=== PATIENT | male | born 1960 | race Caucasian/White ===

== ENCOUNTER 2017-02-23 04:03 | Emergency (ER) | payer OTHER ==
[~2017-02-23] VITALS: Ht 180.3 cm; Wt 113.6 kg
[~2017-02-23 04:03] MED LIST: AMLO5TAB96 PO; DICY1TAB26 PO; IRBE1TAB39 PO; LEVO.075 PO
[2017-02-23] MEDS ORDERED: VALS1TAB70 PO (04:13)
[2017-02-23] MEDS ORDERED: METF500T PO (04:13)
[2017-02-23] MEDS ORDERED: ASPI81CH37 CHEW (04:13)
[2017-02-23] MEDS ORDERED: LEVO.075 PO (04:13)
[2017-02-23 04:18] VITALS: BP 176/98; PULSE 54; RESP 18; TEMP 97.6; O2SAT 96
[2017-02-23] MEDS ORDERED: HYDROmorphone HCL PF 1 MG/ML VIAL IVP ONE (04:30)
[2017-02-23] MEDS ORDERED: ONDANSETRON HCL 4 MG/2 ML VIAL IV ONE (04:30)
[2017-02-23 04:38] LABS: AUTOMATED NEUTROPHIL # 3.3 TH/MM3 (1.8-7.7); BASOPHIL # 0.1 TH/MM3 (0-0.2); EOSINOPHIL # 0.1 TH/MM3 (0-0.4); EOSINOPHIL % 1.1 % (0.0-4.0); HEMATOCRIT 46.9 % (39.0-51.0); HEMO FLAGS DIFF FINAL; LYMPH % 40.9 % (9.0-44.0); LYMPHOCYTE # 2.9 TH/MM3 (1.0-4.8); MEAN CELL VOLUME 91.7 FL (80.0-100.0); MEAN CORPUSCULAR HEMOGLOBIN 30.4 PG (27.0-34.0); MEAN CORPUSCULAR HGB CONC 33.2 % (32.0-36.0); MONO % 10.9 % (0.0-8.0); NEUT % 46.1 % (16.0-70.0); PLATELET COUNT 314 TH/MM3 (150-450); RED BLOOD COUNT 5.12 MIL/MM3 (4.50-5.90); WHITE BLOOD COUNT 7.2 TH/MM3 (4.0-11.0)
[2017-02-23 04:49] LABS: CHLORIDE 107 MEQ/L (98-107); POTASSIUM 3.9 MEQ/L (3.5-5.1); SODIUM (NA) 141 MEQ/L (136-145)
[2017-02-23 04:53] LABS: ANION GAP 7 MEQ/L (5-15); BICARBONATE 26.7 MEQ/L (21.0-32.0); BLOOD UREA NITROGEN 16 MG/DL (7-18)
[2017-02-23 04:56] LABS: GLOMERULAR FILTRATION RATE 69 ML/MIN (>89)
[2017-02-23 04:57] LABS: ALT (GPT) 64 U/L (12-78); AST (GOT) 33 U/L (15-37)
[2017-02-23 04:58] LABS: TOTAL BILIRUBIN ADULT 0.4 MG/DL (0.2-1.0)
[2017-02-23 04:59] LABS: ALKALINE PHOSPHATASE 66 U/L (45-117)
[2017-02-23 05:00] VITALS: BP 150/88; PULSE 50; RESP 16; O2SAT 95
[2017-02-23] MEDS ORDERED: SODIUM CHLORID 0.9% 500 ML INJ 500 ML IV ONE (05:15)
[2017-02-23] MEDS ORDERED: IOHEXOL 350 MG/ML 10 ML VIAL (for RAD DIAG) IV ONE (05:21)
--- NOTE | 2017-02-23 05:26 | RADRPT ---
EXAM DATE/TIME: 02/23/2017 05:09 [facility] COMPARISON: CT ABDOMEN & PELVIS W CONTRAST, September 28, 2012, 13:45. INDICATIONS : Right upper quadrant and flank pain. IV CONTRAST: 100 cc Omnipaque 350 (iohexol) IV ORAL CONTRAST: No oral contrast ingested. RADIATION DOSE: 22.38 CTDIvol (mGy) MEDICAL HISTORY : Hypertension. SURGICAL HISTORY : None. ENCOUNTER: Initial ACUITY: 1 day PAIN SCALE: 5/10 LOCATION: Right upper quadrant TECHNIQUE: Volumetric scanning of the abdomen and pelvis was performed. Using automated exposure control and ad justment of the mA and/or kV according to patient size, radiation dose was kept as low as reasonably achievable to obtain optimal diagnostic quality images. DICOM format image data is available electro nically for review and comparison. FINDINGS: No pleural or pericardial effusions are seen. There is hepatomegaly, hepatic steatosis and cholelithi asis again noted. Spleen, pancreas, adrenal glands, left kidney unremarkable. There is a small cyst r ight midpole kidney and the right lower pole exophytic cyst is decreased in size and increased in att enuation since the previous study measuring 8 x 5 mm. This likely reflects a small proteinaceous cyst . There is moderate right-sided hydronephrosis and there is a calculus within the right proximal uret er measuring 3.6 mm on axial image 52. Urinary bladder unremarkable. There is diverticulosis of the s igmoid colon and descending colon as well as the transverse colon without diverticulitis. The appendi x is normal. No adenopathy. Lung bases are clear. Osseous structures are intact. CONCLUSION: 1. Moderate right hydronephrosis secondary to a right proximal ureteral calculus. 2. Small hemorrhagic or proteinaceous cyst right lower pole kidney, decreased in size from previous s tudy. 3. Right midpole renal cyst. 4. Hepatomegaly. 5. Cholelithiasis. 6. Diverticulosis. Ned Morton MD on February 23, 2017 at 5:22 Board Certified Radiologist. This report was verified electronically.
[2017-02-23] MEDS ORDERED: KETOROLAC TROMETHAMINE 60 MG/2 ML (IM) VIAL IVP ONE (05:30)
[2017-02-23 05:40] VITALS: BP 162/86; PULSE 57; RESP 18; O2SAT 94
[2017-02-23 05:57] LABS: BLOOD, URINE LARGE (NEG); GLUCOSE,URINE NEG (NEG); KETONE, URINE NEG (NEG); NITRITE,URINE NEG (NEG)
[2017-02-23 06:12] LABS: URINE COLOR AMBER (YELLW/STRAW)
[2017-02-23 06:13] LABS: CALCIUM OXALATE CRYSTALS,URINE OCC /hpf; MUCUS URINE MOD /lpf (OCC); RBC, URINE INNUM /hpf (0-3)
[2017-02-23] MEDS ORDERED: TAMSULOSIN HCL 0.4 MG CAP PO ONE (06:15)
[2017-02-23 06:17] LABS: SQUAMOUS EPITHELIAL CELL URINE 0-5 /hpf (0-5)
[2017-02-23 06:20] LABS: BACTERIA, URINE FEW /hpf; COMMENT (UR) CULT NOT INDICATED; CULTURE IF INDICATED CULT NOT INDICATED
[2017-02-23 06:27] VITALS: BP 142/77; PULSE 62; RESP 18; O2SAT 95
--- NOTE | 2017-02-23 06:37 | PD ---
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 He denied any nausea, vomiting, chest pain, shortness of breath or diarrhea. He does not have a history of kidney stones or gallstones. PFSH Past Medical History Patient Takes Glucophage: Yes ("PREVENTATIVE FOR INSULIN RESISTANCE") Hypertension: Yes Pneumonia: Yes (CHILDHOOD) Thyroid Disease: Yes (THYROID NODULE/GOITER, HYPOTHYROIDISM) Tetanus Vaccination: < 5 Years Influenza Vaccination: Yes Past Surgical History Other Surgery: Yes (THYROIDECTOMY) Social History Alcohol Use: No Tobacco Use: No Substance Use: No Allergies-Medications (Allergen,Severity, Reaction): Coded Allergies: No Known Allergies (Unverified , 02/23/17) Reported Meds & Prescriptions Reported Meds & Active Scripts Active Ibuprofen 800 Mg Tab 800 Mg PO TID Zofran (Ondansetron HCl) 4 Mg Tab 4 Mg PO Q6HR PRN Flomax (Tamsulosin HCl) 0.4 Mg Cap 0.4 Mg PO HS Percocet (Oxycodone-Acetaminophen) 7.5-325 mg Tab 1 Tab PO Q4H PRN Reported Aspirin Low Dose (Aspirin) 81 Mg Chew 81 Mg CHEW DAILY Metformin (Metformin HCl) 500 Mg Tab 500 Mg PO BIDPC With meals Synthroid (Levothyroxine Sodium) 75 Mcg Tab 75 Mcg PO DAILY Valsartan 320 Mg Tab 320 Mg PO DAILY Review of Systems Except as stated in HPI: all other systems reviewed are Neg Physical Exam Narrative GENERAL: The patient is alert, oriented 3 in moderate to severe distress with his right abdominal pain. His vital signs show blood pressure 176/98 and pulse of 54 but are otherwise normal. SKIN: Focused skin assessment warm/dry. HEAD: Atraumatic. Normocephalic. EYES: Pupils equal and round. No scleral icterus. No injection or drainage. ENT: No nasal bleeding or discharge. Mucous membranes pink and moist. NECK: Trachea midline. No JVD. CARDIOVASCULAR: Regular rate and rhythm. No murmur appreciated. RESPIRATORY: No accessory muscle use. Clear to auscultation. Breath sounds equal bilaterally. GASTROINTESTINAL: Abdomen soft, the patient is tender in the right upper quadrant and epigastrium, nondistended. Hepatic and splenic margins not palpable. No guarding or rebound is present. MUSCULOSKELETAL: No obvious deformities. No clubbing. No cyanosis. No edema. NEUROLOGICAL: Awake and alert. No obvious cranial nerve deficits. Motor grossly within normal limits. Normal speech. PSYCHIATRIC: Appropriate mood and affect; insight and judgment normal. Data Data Last Documented VS Vital Signs Date Time Temp Pulse Resp B/P Pulse Ox O2 Delivery O2 Flow Rate FiO2 02/23/17 06:27 62 18 142/77 95 Room Air 02/23/17 04:18 97.6 Orders Electrocardiogram (02/23/17 04:08) Complete Blood Count With Diff (02/23/17 04:08) Comprehensive Metabolic Panel (02/23/17 04:08) Troponin I (02/23/17 04:08) Lipase (02/23/17 04:08) Ct Abd/Pel W Iv Contrast(Rout) (02/23/17 04:08) Hydromorphone Pf Inj (Dilaudid Pf Inj) (02/23/17 04:30) Ondansetron Inj (Zofran Inj) (02/23/17 04:30) Sodium Chlorid 0.9% 500 Ml Inj (Ns 500 M (02/23/17 05:15) Ketorolac Inj (Toradol Inj) (02/23/17 05:30) Iohexol 350 Inj (Omnipaque 350 Inj) (02/23/17 05:21) Urinalysis - C+S If Indicated (02/23/17 05:39) Tamsulosin (Flomax) (02/23/17 06:15) Labs Laboratory Tests Test 02/23/17 02/23/17 04:20 05:40 White Blood Count 7.2 TH/MM3 Red Blood Count 5.12 MIL/MM3 Hemoglobin 15.6 GM/DL Hematocrit 46.9 % Mean Corpuscular Volume 91.7 FL Mean Corpuscular Hemoglobin 30.4 PG Mean Corpuscular Hemoglobin 33.2 % Concent Red Cell Distribution Width 14.0 % Platelet Count 314 TH/MM3 Mean Platelet Volume 8.2 FL Neutrophils (%) (Auto) 46.1 % Lymphocytes (%) (Auto) 40.9 % Monocytes (%) (Auto) 10.9 % Eosinophils (%) (Auto) 1.1 % Basophils (%) (Auto) 1.0 % Neutrophils # (Auto) 3.3 TH/MM3 Lymphocytes # (Auto) 2.9 TH/MM3 Monocytes # (Auto) 0.8 TH/MM3 Eosinophils # (Auto) 0.1 TH/MM3 Basophils # (Auto) 0.1 TH/MM3 CBC Comment DIFF FINAL Differential Comment Sodium Level 141 MEQ/L Potassium Level 3.9 MEQ/L Chloride Level 107 MEQ/L Carbon Dioxide Level 26.7 MEQ/L Anion Gap 7 MEQ/L Blood Urea Nitrogen 16 MG/DL Creatinine 1.10 MG/DL Estimat Glomerular Filtration 69 ML/MIN Rate Random Glucose 107 MG/DL Calcium Level 9.2 MG/DL Total Bilirubin 0.4 MG/DL Aspartate Amino Transf 33 U/L (AST/SGOT) Alanine Aminotransferase 64 U/L (ALT/SGPT) Alkaline Phosphatase 66 U/L Troponin I LESS THAN 0.02 NG/ML Total Protein 7.6 GM/DL Albumin 3.7 GM/DL Lipase 127 U/L Urine Color JOSEPH Urine Turbidity SLIGHT Urine pH 5.0 Urine Specific [place] GREATER THAN 1.035 Urine Protein 100 mg/dL Urine Glucose (UA) NEG mg/dL Urine Ketones NEG mg/dL Urine Occult Blood LARGE Urine Nitrite NEG Urine Bilirubin NEG Urine Leukocyte Esterase NEG Urine RBC INNUM /hpf Urine Squamous Epithelial 0-5 /hpf Cells Urine Calcium Oxalate Crystals OCC /hpf Urine Amorphous Sediment FEW Urine Bacteria FEW /hpf Urine Mucus MOD /lpf Microscopic Urinalysis Comment CULT NOT INDICATED MDM Medical Decision Making Medical Screen Exam Complete: Yes Emergency Medical Condition: Yes Medical Record Reviewed: Yes Interpretation(s) The CT abdomen/pelvis with contrast shows moderate right hydronephrosis secondary to a right proximal or ureteral calculus of 3.6 mm. There is a small hemorrhagic or proteinaceous cyst right lower pole of the kidney which has decreased in size from a previous study. There is a right mid pole renal cyst. There is hepatomegaly and cholelithiasis present there is also diverticulosis. The urine showed blood and the labs are unremarkable. Differential Diagnosis Cholecystitis, cholelithiasis, right ureteral stone, urinary tract infection pyelonephritis, UTIcystitis, Narrative Course The patient has a right ureteral stone. It is now 0651 and the patient is comfortable. He will be given prescriptions for Flomax, Zofran, Motrin and Percocet 7.5. He will follow up with urologist Diagnosis Primary Impression: Right ureteral calculus Additional Impression: Cholelithiasis Additional Instructions: As you know, you are likely to pass this stone without any help. If you have problems follow up with urologist. You also have cholelithiasis. Med/Other Pt SpecificInfo: Prescription(s) given Scripts Ibuprofen 800 Mg [id number] Mg PO TID #33 TAB Ref 0 Prov:Singh Awad MD 02/23/17 Ondansetron (Zofran)4 Mg Tab4 Mg PO Q6HR PRN (NAUSEA OR VOMITING) #30 TAB Ref 0 Prov:Singh Awad MD 02/23/17 Tamsulosin (Flomax)0.4 Mg Cap0.4 Mg PO HS #30 CAP Ref 0 Prov:Singh Awad MD 02/23/17 Oxycodone-Acetaminophen (Percocet)7.5-325 mg Tab1 Tab PO Q4H PRN (PAIN) #30 TAB Ref 0 Prov:Singh Awad MD 02/23/17 Disposition: 01 DISCHARGE HOME Condition: Stable Singh Awad MD Feb 23, 2017 06:37
[2017-02-23] MEDS ORDERED: TAMS5CAP PO (06:45)
[2017-02-23] MEDS ORDERED: IBUP800T23 PO (06:45)
[2017-02-23] MEDS ORDERED: PERC7.5T13 PO (06:45)
[2017-02-23] MEDS ORDERED: ZOFR4TAB PO (06:45)
--- NOTE | 2017-02-23 08:17 | EKG ---
Date Performed: 02/23/2017 Time Performed: 04:15:40 PTAGE: 56 years EKG: SINUS BRADYCARDIA BORDERLINE LEFT AXIS DEVIATION MODERATE INTRAVENTRICULAR CONDUCTION DELAY BORDERLINE ECG NO PREVIOUS TRACING DOCTOR: Robert Drew Interpretating Date/Time 02/23/2017 08:15:35
== END 2017-02-23 07:03 | disposition home or self-care (01) ==
LOC: PHED 04:03
DX: N20.1 Calculus of ureter (principal); K80.20 Calculus of gallbladder without cholecystitis without obstruction; R94.31 Abnormal electrocardiogram [ECG] [EKG]; I10 Essential (primary) hypertension; E03.9 Hypothyroidism, unspecified
CPT/HCPCS: 74177; 80053; 81001; 83690; 84484; 85025; 93005; 96361; 96374; 96375; 99285; J1170; J1885; J2405; J7040; Q9967

== ENCOUNTER 2017-02-25 21:29 | Emergency (ER) | payer OTHER ==
[~2017-02-25] VITALS: Ht 180.3 cm; Wt 113.5 kg
[~2017-02-25 21:29] MED LIST changes: -AMLO5TAB96 PO; +ASPI81CH37 CHEW; -DICY1TAB26 PO; +IBUP800T23 PO; -IRBE1TAB39 PO; +METF500T PO; +PERC7.5T13 PO; +TAMS5CAP PO; +VALS1TAB70 PO; +ZOFR4TAB PO
[2017-02-25] MEDS ORDERED: SODIUM CHLOR 0.9% 1000 ML INJ 1,000 ML IV SCH (21:33)
[2017-02-25 21:35] VITALS: BP 179/68; PULSE 78; RESP 16; TEMP 98.7; O2SAT 99
--- NOTE | 2017-02-25 21:48 | PD ---
HPI Chief Complaint: Flank/Kidney Pain Time Seen by Provider: 21:33 Travel History International Travel<30 days: No Contact w/Intl Traveler<30days: No History of Present Illness HPI Patient is a 56-year-old male with history of hypertension who returns to emergency room with complaints of right-sided flank pain. Patient was seen in emergency room on February 23, 2017 which showed moderate right-sided hydronephrosis secondary to right proximal ureteral calculus which measures 3.6 mm in size. Patient reports that pain has improved since he was last seen, he has intermittent right sided flank pain. Reports concern as he has been having decreased urine output with increased swelling to his right ankle. GFR on was 69. Patient denies any fever/chills. No other c/o. PFSH Past Medical History Hypertension: Yes Pneumonia: Yes (CHILDHOOD) Thyroid Disease: Yes (THYROID NODULE/GOITER, HYPOTHYROIDISM) Past Surgical History Other Surgery: Yes (THYROIDECTOMY) Social History Alcohol Use: No Tobacco Use: No Substance Use: No Allergies-Medications (Allergen,Severity, Reaction): Coded Allergies: No Known Allergies (Unverified , 02/23/17) Reported Meds & Prescriptions Reported Meds & Active Scripts Active Ibuprofen 800 Mg Tab 800 Mg PO TID Zofran (Ondansetron HCl) 4 Mg Tab 4 Mg PO Q6HR PRN Flomax (Tamsulosin HCl) 0.4 Mg Cap 0.4 Mg PO HS Percocet (Oxycodone-Acetaminophen) 7.5-325 mg Tab 1 Tab PO Q4H PRN Reported Aspirin Low Dose (Aspirin) 81 Mg Chew 81 Mg CHEW DAILY Metformin (Metformin HCl) 500 Mg Tab 500 Mg PO BIDPC With meals Synthroid (Levothyroxine Sodium) 75 Mcg Tab 75 Mcg PO DAILY Valsartan 320 Mg Tab 320 Mg PO DAILY Review of Systems General / Constitutional: No: Fever Eyes: No: Visual changes HENT: No: Headaches Cardiovascular: No: Chest Pain or Discomfort Respiratory: No: Shortness of Breath Gastrointestinal: No: Abdominal Pain Genitourinary: Positive: Decreased Urinary Output, Flank Pain, No: Dysuria Musculoskeletal: No: Pain Skin: No Rash Neurologic: No: Weakness Psychiatric: No: Depression Endocrine: No: Polydipsia Hematologic/Lymphatic: No: Easy Bruising Physical Exam Narrative GENERAL: NAD, Nontoxic SKIN: Focused skin assessment warm/dry. CARDIOVASCULAR: Regular rate and rhythm. No murmur appreciated. RESPIRATORY: No accessory muscle use. Clear to auscultation. Breath sounds equal bilaterally. GASTROINTESTINAL: Abdomen soft, non-tender, nondistended. Hepatic and splenic margins not palpable. MUSCULOSKELETAL: No obvious deformities. No clubbing. No cyanosis. No edema. Patient with right sided flank pain NEUROLOGICAL: Awake and alert. Motor grossly within normal limits. Normal speech. PSYCHIATRIC: Appropriate mood and affect; insight and judgment normal. Data Data Last Documented VS Vital Signs Date Time Temp Pulse Resp B/P Pulse Ox O2 Delivery O2 Flow Rate FiO2 02/25/17 21:35 98.7 78 16 179/68 99 Orders Basic Metabolic Panel (Bmp) (02/25/17 21:33) Complete Blood Count With Diff (02/25/17 21:33) Urinalysis - C+S If Indicated (02/25/17 21:33) Iv Access Insert/Monitor (02/25/17 21:33) Sodium Chlor 0.9% 1000 Ml Inj (Ns 1000 M (02/25/17 21:33) Us Kidney/Renal/Bladder (02/25/17 ) Ketorolac Inj (Toradol Inj) (02/25/17 23:30) Labs Laboratory Tests Test 02/25/17 02/25/17 21:45 22:50 White Blood Count 6.9 TH/MM3 Red Blood Count 4.63 MIL/MM3 Hemoglobin 14.2 GM/DL Hematocrit 42.1 % Mean Corpuscular Volume 90.9 FL Mean Corpuscular Hemoglobin 30.6 PG Mean Corpuscular Hemoglobin 33.6 % Concent Red Cell Distribution Width 13.3 % Platelet Count 272 TH/MM3 Mean Platelet Volume 8.0 FL Neutrophils (%) (Auto) 56.0 % Lymphocytes (%) (Auto) 35.3 % Monocytes (%) (Auto) 4.7 % Eosinophils (%) (Auto) 3.1 % Basophils (%) (Auto) 0.9 % Neutrophils # (Auto) 3.9 TH/MM3 Lymphocytes # (Auto) 2.4 TH/MM3 Monocytes # (Auto) 0.3 TH/MM3 Eosinophils # (Auto) 0.2 TH/MM3 Basophils # (Auto) 0.1 TH/MM3 CBC Comment DIFF FINAL Differential Comment Sodium Level 139 MEQ/L Potassium Level 3.6 MEQ/L Chloride Level 105 MEQ/L Carbon Dioxide Level 27.0 MEQ/L Anion Gap 7 MEQ/L Blood Urea Nitrogen 9 MG/DL Creatinine 0.99 MG/DL Estimat Glomerular Filtration 78 ML/MIN Rate Random Glucose 151 MG/DL Calcium Level 8.4 MG/DL Urine Color YELLOW Urine Turbidity CLEAR Urine pH 5.5 Urine Specific [place] 1.010 Urine Protein NEG mg/dL Urine Glucose (UA) NEG mg/dL Urine Ketones NEG mg/dL Urine Occult Blood SMALL Urine Nitrite NEG Urine Bilirubin NEG Urine Leukocyte Esterase NEG Urine RBC 3-5 /hpf Urine WBC 0-2 /hpf Urine Squamous Epithelial 0-5 /hpf Cells Urine Bacteria NONE /hpf Microscopic Urinalysis Comment CULT NOT INDICATED MDM Medical Decision Making Medical Screen Exam Complete: Yes Emergency Medical Condition: Yes Interpretation(s) Vital Signs Date Time Temp Pulse Resp B/P Pulse Ox O2 Delivery O2 Flow Rate FiO2 02/25/17 21:35 98.7 78 16 179/68 99 CBC & BMP Diagram 02/25/17 21:45 Differential Diagnosis Differential includes hydronephrosis, UTI, right ureteral calculus, renal insufficiency Narrative Course Patient is a 56-year-old male who returns to emergency room with complaints of right sided flank pain with decreased urine output. Renal US ordered to evaluate for hydronephrosis Labs ordered to evaluate for renal function Vital Signs Date Time Temp Pulse Resp B/P Pulse Ox O2 Delivery O2 Flow Rate FiO2 02/25/17 21:35 98.7 78 16 179/68 99 Laboratory Tests Test 02/25/17 21:45 White Blood Count 6.9 TH/MM3 (4.0-11.0) Red Blood Count 4.63 MIL/MM3 (4.50-5.90) Hemoglobin 14.2 GM/DL (13.0-17.0) Hematocrit 42.1 % (39.0-51.0) Mean Corpuscular Volume 90.9 FL (80.0-100.0) Mean Corpuscular Hemoglobin 30.6 PG (27.0-34.0) Mean Corpuscular Hemoglobin 33.6 % Concent (32.0-36.0) Red Cell Distribution Width 13.3 % (11.6-17.2) Platelet Count 272 TH/MM3 (150-450) Mean Platelet Volume 8.0 FL (7.0-11.0) Neutrophils (%) (Auto) 56.0 % (16.0-70.0) Lymphocytes (%) (Auto) 35.3 % (9.0-44.0) Monocytes (%) (Auto) 4.7 % (0.0-8.0) Eosinophils (%) (Auto) 3.1 % (0.0-4.0) Basophils (%) (Auto) 0.9 % (0.0-2.0) Neutrophils # (Auto) 3.9 TH/MM3 (1.8-7.7) Lymphocytes # (Auto) 2.4 TH/MM3 (1.0-4.8) Monocytes # (Auto) 0.3 TH/MM3 (0-0.9) Eosinophils # (Auto) 0.2 TH/MM3 (0-0.4) Basophils # (Auto) 0.1 TH/MM3 (0-0.2) CBC Comment DIFF FINAL Differential Comment Sodium Level 139 MEQ/L (136-145) Potassium Level 3.6 MEQ/L (3.5-5.1) Chloride Level 105 MEQ/L (98-107) Carbon Dioxide Level 27.0 MEQ/L (21.0-32.0) Anion Gap 7 MEQ/L (5-15) Blood Urea Nitrogen 9 MG/DL (7-18) Creatinine 0.99 MG/DL (0.60-1.30) Estimat Glomerular Filtration 78 ML/MIN (>89) Rate Random Glucose 151 MG/DL (74-106) Calcium Level 8.4 MG/DL (8.5-10.1) GFR improved: 78 Last Impressions Renal Ultrasound 02/25/17 0000 Signed Impressions: Service Date/Time: Saturday, February 25, 2017 22:21 - CONCLUSION: 1. Mild prominence of the right renal pelvis. 2. Simple cyst right kidney measures 1.9 cm. Shashank Edouard MD All labs and studies reviewed, patient will follow up with pcp and will return to ER as needed Return to ER as needed or if symptoms return Diagnosis Primary Impression: Right ureteral calculus Additional Impression: Hematuria Patient Instructions: General Instructions Additional Instructions: Return to ER as needed Please drink plenty of fluids Please follow up with your primary care doctor as well as your urologist Disposition: 01 DISCHARGE HOME Condition: Stable Frieda Ha DO Feb 25, 2017 21:48
[2017-02-25 21:57] LABS: AUTOMATED NEUTROPHIL # 3.9 TH/MM3 (1.8-7.7); BASOPHIL # 0.1 TH/MM3 (0-0.2); BASOPHIL % 0.9 % (0.0-2.0); EOSINOPHIL # 0.2 TH/MM3 (0-0.4); EOSINOPHIL % 3.1 % (0.0-4.0); HEMATOCRIT 42.1 % (39.0-51.0); HEMO FLAGS DIFF FINAL; LYMPH % 35.3 % (9.0-44.0); LYMPHOCYTE # 2.4 TH/MM3 (1.0-4.8); MEAN CELL VOLUME 90.9 FL (80.0-100.0); MEAN CORPUSCULAR HEMOGLOBIN 30.6 PG (27.0-34.0); MEAN CORPUSCULAR HGB CONC 33.6 % (32.0-36.0); MONO % 4.7 % (0.0-8.0); PLATELET COUNT 272 TH/MM3 (150-450); RED BLOOD COUNT 4.63 MIL/MM3 (4.50-5.90); RED CELL DISTRIBUTION WIDTH 13.3 % (11.6-17.2); WHITE BLOOD COUNT 6.9 TH/MM3 (4.0-11.0)
[2017-02-25 22:05] LABS: POTASSIUM 3.6 MEQ/L (3.5-5.1)
[2017-02-25 22:53] LABS: BLOOD, URINE SMALL (NEG); GLUCOSE,URINE NEG (NEG); KETONE, URINE NEG (NEG); NITRITE,URINE NEG (NEG); PH, URINE 5.5 (5.0-8.5)
[2017-02-25 23:07] LABS: URINE COLOR YELLOW (YELLW/STRAW); WBC, URINE 0-2 /hpf (0-5)
[2017-02-25 23:08] LABS: COMMENT (UR) CULT NOT INDICATED; CULTURE IF INDICATED CULT NOT INDICATED; SQUAMOUS EPITHELIAL CELL URINE 0-5 /hpf (0-5)
--- NOTE | 2017-02-25 23:15 | RADRPT ---
EXAM DATE/TIME: 02/25/2017 22:21 [facility] COMPARISON: No previous studies available for comparison. INDICATIONS : Right flank pain. MEDICAL HISTORY : Hypothyroidism. Hypertension. Renal calculi. Pneumonia. SURGICAL HISTORY : Thyroidectomy. ENCOUNTER: Initial ACUITY: 3 days PAIN SCORE: 3/10 LOCATION: Bilateral flank MEASUREMENTS: RIGHT KIDNEY: 13.2 x 6.5 x 6.7 cm LEFT KIDNEY: 12.1 x 5.3 x 6.5 cm FINDINGS: RIGHT KIDNEY: Renal cortex is normal in thickness and echotexture. No stone or mass. Mild prominence of the renal pelvis. Small simple cyst measures 19 x 17 x 16 mm.. LEFT KIDNEY: Renal cortex is normal in thickness and echotexture. No hydronephrosis, stone, or mass. BLADDER: Within normal limits given the degree of distension. CONCLUSION: 1. Mild prominence of the right renal pelvis. 2. Simple cyst right kidney measures 1.9 cm. Shashank Edouard MD on February 25, 2017 at 23:10 Board Certified Radiologist. This report was verified electronically.
[2017-02-25] MEDS ORDERED: KETOROLAC TROMETHAMINE 30 MG/ML (IVP) VIAL IV PUSH ONE (23:30)
[2017-02-25 23:54] VITALS: BP 168/84; PULSE 77; RESP 16; O2SAT 99
== END 2017-02-26 00:06 | disposition home or self-care (01) ==
LOC: PHED 21:29
DX: N20.1 Calculus of ureter (principal); N28.1 Cyst of kidney, acquired; E03.9 Hypothyroidism, unspecified; I10 Essential (primary) hypertension
CPT/HCPCS: 76775; 80048; 81001; 85025; 96361; 96374; 99285; J1885; J7030

== ENCOUNTER 2017-04-27 19:09 | Emergency (ER) | payer OTHER ==
[~2017-04-27] VITALS: Ht 182.9 cm; Wt 116.3 kg
[2017-04-27 19:11] VITALS: BP 175/88; PULSE 82; RESP 18; TEMP 98.1; O2SAT 96
[2017-04-27] MEDS ORDERED: KETOROLAC TROMETHAMINE 30 MG/ML (IVP) VIAL IV PUSH ONE (19:45)
[2017-04-27] MEDS ORDERED: ONDANSETRON HCL 4 MG/2 ML VIAL IV PUSH ONE (19:45)
--- NOTE | 2017-04-27 20:13 | PD ---
HPI Chief Complaint: Flank/Kidney Pain Time Seen by Provider: 19:24 Travel History International Travel<30 days: No Contact w/Intl Traveler<30days: No Traveled to known affect area: No History of Present Illness HPI So 56-year-old man presents emergency department complaining of right flank pain and back pain started today. Pain is mostly in the right inguinal area now. Feels similar to previous kidney stone. One kidney stone the past several months ago. He took Motrin 800 mg as well as some Zofran and Flomax which has helped some with the pain. He also notices blood in his urine. No nausea or vomiting. No fevers or chills. He otherwise had been feeling generally well and healthy before the onset of the symptoms. History Past Medical History Narrative Medical Hypertension Hypothyroidism Social History Alcohol Use: No Tobacco Use: No Allergies-Medications (Allergen,Severity, Reaction): Coded Allergies: No Known Allergies (Unverified , 04/27/17) Reported Meds & Prescriptions Reported Meds & Active Scripts Active Ibuprofen 800 Mg Tab 800 Mg PO TID Zofran (Ondansetron HCl) 4 Mg Tab 4 Mg PO Q6HR PRN Flomax (Tamsulosin HCl) 0.4 Mg Cap 0.4 Mg PO HS Percocet (Oxycodone-Acetaminophen) 7.5-325 mg Tab 1 Tab PO Q4H PRN Reported Aspirin Low Dose (Aspirin) 81 Mg Chew 81 Mg CHEW DAILY Metformin (Metformin HCl) 500 Mg Tab 500 Mg PO BIDPC With meals Synthroid (Levothyroxine Sodium) 75 Mcg Tab 75 Mcg PO DAILY Valsartan 320 Mg Tab 320 Mg PO DAILY Review of Systems Except as stated in HPI: all other systems reviewed are Neg Physical Exam Narrative GENERAL: Well-appearing 56-year-old man, no acute distress. SKIN: Focused skin assessment warm/dry. NECK: Trachea midline. No JVD. CARDIOVASCULAR: Warm and well perfused. RESPIRATORY: Normal rate and effort. GASTROINTESTINAL: Abdomen is obese, soft, mild right sided tenderness to palpation. No rebound or guarding. No CVA tenderness. MUSCULOSKELETAL: No obvious deformities. No edema. NEUROLOGICAL: Awake and alert. No obvious cranial nerve deficits. Motor grossly within normal limits. Normal speech. PSYCHIATRIC: Appropriate mood and affect; insight and judgment normal. Data Data Last Documented VS Vital Signs Date Time Temp Pulse Resp B/P (MAP) Pulse Ox O2 Delivery O2 Flow Rate FiO2 04/27/17 19:11 98.1 82 18 175/88 (117) 96 Orders Orders Complete Blood Count With Diff (04/27/17 19:44) Basic Metabolic Panel (Bmp) (04/27/17 19:44) Iv Access Insert/Monitor (04/27/17 19:44) Urinalysis - C+S If Indicated (04/27/17 19:44) Ketorolac Inj (Toradol Inj) (04/27/17 19:45) Ondansetron Inj (Zofran Inj) (04/27/17 19:45) Labs Laboratory Tests Test 04/27/17 20:00 White Blood Count 8.6 TH/MM3 Red Blood Count 4.88 MIL/MM3 Hemoglobin 14.8 GM/DL Hematocrit 43.4 % Mean Corpuscular Volume 88.9 FL Mean Corpuscular Hemoglobin 30.4 PG Mean Corpuscular Hemoglobin Concent 34.2 % Red Cell Distribution Width 13.1 % Platelet Count 305 TH/MM3 Mean Platelet Volume 7.8 FL Neutrophils (%) (Auto) 66.2 % Lymphocytes (%) (Auto) 26.0 % Monocytes (%) (Auto) 6.9 % Eosinophils (%) (Auto) 0.3 % Basophils (%) (Auto) 0.6 % Neutrophils # (Auto) 5.7 TH/MM3 Lymphocytes # (Auto) 2.2 TH/MM3 Monocytes # (Auto) 0.6 TH/MM3 Eosinophils # (Auto) 0.0 TH/MM3 Basophils # (Auto) 0.1 TH/MM3 CBC Comment DIFF FINAL Differential Comment Urine Color BROWN Urine Turbidity CLOUDY Urine pH 5.0 Urine Specific [place] 1.030 Urine Protein 300 OR GREATER mg/dL Urine Glucose (UA) NEG mg/dL Urine Ketones TRACE mg/dL Urine Occult Blood LARGE Urine Nitrite POS Urine Bilirubin NEG Urine Leukocyte Esterase NEG Urine RBC 100-200 /hpf Urine WBC 3-5 /hpf Urine Squamous Epithelial Cells 0-5 /hpf Urine Amorphous Sediment LARGE Microscopic Urinalysis Comment CULT NOT INDICATED Blood Urea Nitrogen 20 MG/DL Creatinine 1.00 MG/DL Random Glucose 106 MG/DL Calcium Level 9.1 MG/DL Sodium Level 137 MEQ/L Potassium Level 4.2 MEQ/L Chloride Level 103 MEQ/L Carbon Dioxide Level 24.9 MEQ/L Anion Gap 9 MEQ/L Estimat Glomerular Filtration Rate 77 ML/MIN [facility] Medical Decision Making Medical Screen Exam Complete: Yes Emergency Medical Condition: Yes Differential Diagnosis Renal lithiasis, renal colic, renal mass, other Narrative Course 56-year-old man, history of fairly recent renal lithiasis, here for symptoms suggestive renal lithiasis with hematuria and flank pain. Looks well. Comfortable now. Minimal pain now. Recommend UA and labs. Recommend avoid CT at this time. Diagnosis Primary Impression: Right ureteral calculus Patient Instructions: General Instructions Additional Instructions: Take Motrin as needed for pain. Use Zofran or Percocet as previously prescribed as needed for vomiting or pain respectively. Return to the emergency department for any worsening abdominal pain, fevers, or any other new or worsening symptoms. Disposition: 01 DISCHARGE HOME Condition: Stable Nirmal Llamas MD Apr 27, 2017 20:13
[2017-04-27 20:14] LABS: AUTOMATED NEUTROPHIL # 5.7 TH/MM3 (1.8-7.7); BASOPHIL # 0.1 TH/MM3 (0-0.2); BASOPHIL % 0.6 % (0.0-2.0); EOSINOPHIL % 0.3 % (0.0-4.0); HEMATOCRIT 43.4 % (39.0-51.0); HEMO FLAGS DIFF FINAL; LYMPHOCYTE # 2.2 TH/MM3 (1.0-4.8); MEAN CELL VOLUME 88.9 FL (80.0-100.0); MEAN CORPUSCULAR HEMOGLOBIN 30.4 PG (27.0-34.0); MEAN CORPUSCULAR HGB CONC 34.2 % (32.0-36.0); MONO % 6.9 % (0.0-8.0); NEUT % 66.2 % (16.0-70.0); PLATELET COUNT 305 TH/MM3 (150-450); RED BLOOD COUNT 4.88 MIL/MM3 (4.50-5.90); RED CELL DISTRIBUTION WIDTH 13.1 % (11.6-17.2); WHITE BLOOD COUNT 8.6 TH/MM3 (4.0-11.0)
[2017-04-27 20:15] LABS: BLOOD, URINE LARGE (NEG); GLUCOSE,URINE NEG (NEG); KETONE, URINE TRACE mg/dL (NEG); NITRITE,URINE POS (NEG)
[2017-04-27 20:21] LABS: URINE COLOR BROWN (YELLW/STRAW)
[2017-04-27 20:23] LABS: SQUAMOUS EPITHELIAL CELL URINE 0-5 /hpf (0-5)
[2017-04-27 20:25] LABS: COMMENT (UR) CULT NOT INDICATED; CULTURE IF INDICATED CULT NOT INDICATED; POTASSIUM 4.2 MEQ/L (3.5-5.1); RBC, URINE 100-200 /hpf (0-3)
[2017-04-27 20:28] LABS: BICARBONATE 24.9 MEQ/L (21.0-32.0)
[2017-04-27 21:09] VITALS: BP 131/77; PULSE 69; RESP 16; O2SAT 97
== END 2017-04-27 21:28 | disposition home or self-care (01) ==
LOC: PHED 19:09
DX: N20.1 Calculus of ureter (principal); I10 Essential (primary) hypertension; E03.9 Hypothyroidism, unspecified
CPT/HCPCS: 80048; 81001; 85025; 99283

== ENCOUNTER 2017-06-19 14:56 | Emergency (ER) | payer OTHER ==
[~2017-06-19] VITALS: Ht 182.9 cm; Wt 114.0 kg
[~2017-06-19 14:56] MED LIST changes: -ASPI81CH37 CHEW; +ASPI81CH6 CHEW; +IBUP1TAB7 PO; -IBUP800T23 PO
[2017-06-19 15:00] VITALS: BP 142/73; PULSE 60; RESP 20; TEMP 97.4; O2SAT 96
[2017-06-19] MEDS ORDERED: SODIUM CHLOR 0.9% 1000 ML INJ 1,000 ML IV SCH (15:04)
--- NOTE | 2017-06-19 15:11 | PD ---
HPI Chief Complaint: GI Complaint Time Seen by Provider: 15:04 Travel History International Travel<30 days: No Contact w/Intl Traveler<30days: No Traveled to known affect area: No History of Present Illness HPI The patient is a 57-year-old male who presents to the emergency department for right flank pain with nausea. The patient states he developed pain earlier today, this morning, located over the right mid back that radiated to the right flank and down to the right groin. He does complain of mild nausea without any vomiting, diarrhea, or change in bowel habits. The patient states that he took medications at home including ibuprofen, oxycodone, and Zofran. The patient's pain improved, and his nausea improved, however, he still has mild nausea. He does have a history of similar symptoms in the past secondary to nephrolithiasis. The patient states she was diagnosed with his first kidney stone 3 months ago, approximately 3 mm, he is unsure if he has passed a stone since original diagnosis. He did have some right flank pain one month ago, however, it resolved prior to arrival and no imaging was performed. He has talked with the urologist, Dr. Longo, in the past regarding his kidney stone. He also took a Flomax this morning secondary to his symptoms. He denies any chest pain, shortness of breath, or cough. He does have a history of gallstones, but denies any postprandial symptoms today. The patient denies any dysuria, frequency, urgency, or hematuria. PFSH Past Medical History Hypertension: Yes Kidney Stones: Yes Pneumonia: Yes (CHILDHOOD) Thyroid Disease: Yes (THYROID NODULE/GOITER, HYPOTHYROIDISM) Past Surgical History Other Surgery: Yes (PARTIAL THYROIDECTOMY 2009) Social History Alcohol Use: No Tobacco Use: No Substance Use: No Allergies-Medications (Allergen,Severity, Reaction): Coded Allergies: No Known Allergies (Unverified , 04/27/17) Reported Meds & Prescriptions Reported Meds & Active Scripts Active Ibuprofen 600 Mg Tab 600 Mg PO Q6H PRN Zofran Odt (Ondansetron Odt) 4 Mg Tab 4 Mg SL Q6HR PRN Flomax (Tamsulosin HCl) 0.4 Mg Cap 0.4 Mg PO HS 10 Days Bradford (Hydrocodone-Acetaminophen) 5 Mg-325 Mg Tab 1 Tab PO Q6H PRN Ibuprofen 800 Mg Tab 800 Mg PO TID Zofran (Ondansetron HCl) 4 Mg Tab 4 Mg PO Q6HR PRN Flomax (Tamsulosin HCl) 0.4 Mg Cap 0.4 Mg PO HS Percocet (Oxycodone-Acetaminophen) 7.5-325 mg Tab 1 Tab PO Q4H PRN Reported Aspirin Low Dose (Aspirin) 81 Mg Chew 81 Mg CHEW DAILY Metformin (Metformin HCl) 500 Mg Tab 500 Mg PO BIDPC With meals Synthroid (Levothyroxine Sodium) 75 Mcg Tab 75 Mcg PO DAILY Valsartan 320 Mg Tab 320 Mg PO DAILY Review of Systems Except as stated in HPI: all other systems reviewed are Neg General / Constitutional: No: Fever Cardiovascular: No: Chest Pain or Discomfort Respiratory: No: Shortness of Breath Gastrointestinal: Positive: Nausea, No: Vomiting, Diarrhea, Abdominal Pain Genitourinary: Positive: Flank Pain, No: Urgency, Frequency, Dysuria, Hematuria Musculoskeletal: No: Weakness Neurologic: No: Dizziness Physical Exam Narrative GENERAL: Awake, alert, pleasant 57-year-old male appears his stated age and is in no acute respiratory distress. SKIN: Focused skin assessment slightly cool to the touch. Slightly pale- appearing. HEAD: Atraumatic. Normocephalic. EYES: Pupils equal and round. No scleral icterus. No injection or drainage. ENT: No nasal bleeding or discharge. Mucous membranes pink and moist. NECK: Trachea midline. No JVD. CARDIOVASCULAR: Regular rate and rhythm. No murmur appreciated. RESPIRATORY: No accessory muscle use. Clear to auscultation. Breath sounds equal bilaterally. GASTROINTESTINAL: Abdomen soft, non-tender, nondistended. Negative Santos's. Negative McBurney's. No guarding or rigidity. Back: No CVA tenderness. MUSCULOSKELETAL: No obvious deformities. No clubbing. No cyanosis. No edema. NEUROLOGICAL: Awake and alert. No obvious cranial nerve deficits. Motor grossly within normal limits. Normal speech. PSYCHIATRIC: Appropriate mood and affect; insight and judgment normal. Data Data Last Documented VS Vital Signs Date Time Temp Pulse Resp B/P (MAP) Pulse Ox O2 Delivery O2 Flow Rate FiO2 06/19/17 16:55 06/19/17 16:50 80 18 93 Room Air 06/19/17 15:48 2.00 06/19/17 15:00 97.4 Orders Orders Complete Blood Count With Diff (06/19/17 15:04) Comprehensive Metabolic Panel (06/19/17 15:04) Lipase (06/19/17 15:04) Urinalysis - C+S If Indicated (06/19/17 15:04) Ct Abd/Pel W/O Iv Contrast (06/19/17 15:04) Iv Access Insert/Monitor (06/19/17 15:04) Ecg Monitoring (06/19/17 15:04) Oximetry (06/19/17 15:04) Ondansetron Inj (Zofran Inj) (06/19/17 15:15) Sodium Chlor 0.9% 1000 Ml Inj (Ns 1000 M (06/19/17 15:04) Sodium Chloride 0.9% Flush (Ns Flush) (06/19/17 15:15) Ed Discharge Order (06/19/17 16:34) Labs Laboratory Tests Test 06/19/17 15:20 06/19/17 16:50 White Blood Count 9.0 TH/MM3 Red Blood Count 4.91 MIL/MM3 Hemoglobin 14.6 GM/DL Hematocrit 45.1 % Mean Corpuscular Volume 91.8 FL Mean Corpuscular Hemoglobin 29.7 PG Mean Corpuscular Hemoglobin Concent 32.3 % Red Cell Distribution Width 13.5 % Platelet Count 320 TH/MM3 Mean Platelet Volume 7.8 FL Neutrophils (%) (Auto) 61.9 % Lymphocytes (%) (Auto) 26.7 % Monocytes (%) (Auto) 9.4 % Eosinophils (%) (Auto) 1.1 % Basophils (%) (Auto) 0.9 % Neutrophils # (Auto) 5.6 TH/MM3 Lymphocytes # (Auto) 2.4 TH/MM3 Monocytes # (Auto) 0.8 TH/MM3 Eosinophils # (Auto) 0.1 TH/MM3 Basophils # (Auto) 0.1 TH/MM3 CBC Comment DIFF FINAL Differential Comment Blood Urea Nitrogen 15 MG/DL Creatinine 0.98 MG/DL Random Glucose 137 MG/DL Total Protein 7.5 GM/DL Albumin 3.7 GM/DL Calcium Level 8.1 MG/DL Alkaline Phosphatase 61 U/L Aspartate Amino Transf (AST/SGOT) 30 U/L Alanine Aminotransferase (ALT/SGPT) 59 U/L Total Bilirubin 0.3 MG/DL Sodium Level 138 MEQ/L Potassium Level 4.0 MEQ/L Chloride Level 104 MEQ/L Carbon Dioxide Level 26.6 MEQ/L Anion Gap 7 MEQ/L Estimat Glomerular Filtration Rate 79 ML/MIN Lipase 153 U/L Urine Collection Type CLEAN CATCH Urine Color YELLOW Urine Turbidity CLEAR Urine pH 5.0 Urine Specific Perry 1.028 Urine Protein NEG mg/dL Urine Glucose (UA) NEG mg/dL Urine Ketones NEG mg/dL Urine Occult Blood TRACE Urine Nitrite NEG Urine Bilirubin NEG Urine Leukocyte Esterase NEG Urine RBC 10-14 /hpf Urine Squamous Epithelial Cells 0-5 /hpf Urine Hyaline Casts 0-2 /lpf Microscopic Urinalysis Comment CULT NOT INDICATED Urine Collection Time 16:50 [facility] Medical Decision Making Medical Screen Exam Complete: Yes Emergency Medical Condition: Yes Medical Record Reviewed: Yes Interpretation(s) EKG reveals sinus bradycardia with a heart rate of 59. Flattened T waves. Last Impressions Abdomen/Pelvis CT 06/19/17 1504 Signed Impressions: Service Date/Time: Monday, June 19, 2017 15:54 - CONCLUSION: 3 x 5 x 5 mm stone of the distal right ureter causing mild to moderate obstructive uropathy. The stone is not readily visible on the initial lane attendant radiograph. Rene Steele MD Laboratory Tests Test 06/19/17 15:20 06/19/17 16:50 White Blood Count 9.0 TH/MM3 Red Blood Count 4.91 MIL/MM3 Hemoglobin 14.6 GM/DL Hematocrit 45.1 % Mean Corpuscular Volume 91.8 FL Mean Corpuscular Hemoglobin 29.7 PG Mean Corpuscular Hemoglobin Concent 32.3 % Red Cell Distribution Width 13.5 % Platelet Count 320 TH/MM3 Mean Platelet Volume 7.8 FL Neutrophils (%) (Auto) 61.9 % Lymphocytes (%) (Auto) 26.7 % Monocytes (%) (Auto) 9.4 % Eosinophils (%) (Auto) 1.1 % Basophils (%) (Auto) 0.9 % Neutrophils # (Auto) 5.6 TH/MM3 Lymphocytes # (Auto) 2.4 TH/MM3 Monocytes # (Auto) 0.8 TH/MM3 Eosinophils # (Auto) 0.1 TH/MM3 Basophils # (Auto) 0.1 TH/MM3 CBC Comment DIFF FINAL Differential Comment Blood Urea Nitrogen 15 MG/DL Creatinine 0.98 MG/DL Random Glucose 137 MG/DL Total Protein 7.5 GM/DL Albumin 3.7 GM/DL Calcium Level 8.1 MG/DL Alkaline Phosphatase 61 U/L Aspartate Amino Transf (AST/SGOT) 30 U/L Alanine Aminotransferase (ALT/SGPT) 59 U/L Total Bilirubin 0.3 MG/DL Sodium Level 138 MEQ/L Potassium Level 4.0 MEQ/L Chloride Level 104 MEQ/L Carbon Dioxide Level 26.6 MEQ/L Anion Gap 7 MEQ/L Estimat Glomerular Filtration Rate 79 ML/MIN Lipase 153 U/L Urine Collection Type CLEAN CATCH Urine Color YELLOW Urine Turbidity CLEAR Urine pH 5.0 Urine Specific Perry 1.028 Urine Protein NEG mg/dL Urine Glucose (UA) NEG mg/dL Urine Ketones NEG mg/dL Urine Occult Blood TRACE Urine Nitrite NEG Urine Bilirubin NEG Urine Leukocyte Esterase NEG Urine RBC 10-14 /hpf Urine Squamous Epithelial Cells 0-5 /hpf Urine Hyaline Casts 0-2 /lpf Microscopic Urinalysis Comment CULT NOT INDICATED Urine Collection Time 16:50 Differential Diagnosis Differential diagnosis includes nephrolithiasis, hydronephrosis, ureteral colic , pyelonephritis, atypical appendicitis, atypical cholecystitis, biliary colic, lower lobe pneumonia, atypical ACS. Narrative Course IV was established, labs are drawn and sent, and the patient was placed on cardiac telemetry monitoring and continuous pulse oximetry monitoring. The patient was administered Zofran and IV fluids. UA was sent to lab. Noncontrast CT of the abdomen and pelvis was performed. The patient's BUN and creatinine are unremarkable. CT the abdomen and pelvis reveals a 3 x 5 x 5 mm stone in the distal right ureter approximately 1.5 cm proximal to the UVJ. The patient was reevaluated at 4:30 PM, he was still pain-free. He will be discharged home with Zofran, Flomax, hydrocodone, and ibuprofen. He is advised to follow-up with urology. He will be provided a copy of his CT results and lab results at discharge. He is advised to return if symptoms worsen or progress. He is also advised to follow-up with his urologist, Dr. Longo. Diagnosis Primary Impression: Right ureteral calculus Patient Instructions: General Instructions Additional Instructions: Please provide a patient a copy of his CT results and lab results at discharge. Medications as directed. Follow-up with your primary physician and/or urologist. Return if symptoms worsen or progress. Please provide the patient a strainer at discharge. Med/Other Pt SpecificInfo: Prescription(s) given Scripts Ibuprofen (Ibuprofen) 600 Mg Tab 600 MG PO Q6H Y for Pain/Inflammation, #20 TAB 0 Refills Prov: Tj Espinoza MD 06/19/17 Ondansetron Odt (Zofran Odt) 4 Mg Tab 4 MG SL Q6HR Y for Nausea/Vomiting, #10 TAB 0 Refills Prov: Tj Espinoza MD 06/19/17 Tamsulosin (Flomax) 0.4 Mg Cap 0.4 MG PO HS for Manage Prostate Problems for 10 Days, #10 CAP 0 Refills Prov: Tj Espinoza MD 06/19/17 Hydrocodone-Acetaminophen (Bradford) 5 Mg-325 Mg Tab 1 TAB PO Q6H Y for PAIN, #20 TAB 0 Refills Prov: Tj Espinoza MD 06/19/17 Disposition: 01 DISCHARGE HOME Condition: Stable Tj Espinoza MD Jun 19, 2017 15:11
[2017-06-19] MEDS ORDERED: ONDANSETRON HCL 4 MG/2 ML VIAL IVP ONE (15:15)
[2017-06-19] MEDS ORDERED: SODIUM CHLORIDE 0.9% FLUSH 10 ML FLUSH IV FLUSH PRN (15:15)
[2017-06-19 15:31] LABS: AUTOMATED NEUTROPHIL # 5.6 TH/MM3 (1.8-7.7); BASOPHIL # 0.1 TH/MM3 (0-0.2); BASOPHIL % 0.9 % (0.0-2.0); EOSINOPHIL # 0.1 TH/MM3 (0-0.4); EOSINOPHIL % 1.1 % (0.0-4.0); HEMATOCRIT 45.1 % (39.0-51.0); HEMO FLAGS DIFF FINAL; LYMPH % 26.7 % (9.0-44.0); LYMPHOCYTE # 2.4 TH/MM3 (1.0-4.8); MEAN CELL VOLUME 91.8 FL (80.0-100.0); MEAN CORPUSCULAR HEMOGLOBIN 29.7 PG (27.0-34.0); MEAN CORPUSCULAR HGB CONC 32.3 % (32.0-36.0); MONO % 9.4 % (0.0-8.0); NEUT % 61.9 % (16.0-70.0); PLATELET COUNT 320 TH/MM3 (150-450); RED BLOOD COUNT 4.91 MIL/MM3 (4.50-5.90); RED CELL DISTRIBUTION WIDTH 13.5 % (11.6-17.2)
[2017-06-19 15:33] VITALS: RESP 18; O2SAT 90
[2017-06-19 15:41] LABS: CHLORIDE 104 MEQ/L (98-107); SODIUM (NA) 138 MEQ/L (136-145)
[2017-06-19 15:45] LABS: ANION GAP 7 MEQ/L (5-15); BICARBONATE 26.6 MEQ/L (21.0-32.0); BLOOD UREA NITROGEN 15 MG/DL (7-18)
[2017-06-19 15:48] VITALS: BP 121/74; PULSE 50; RESP 18; O2SAT 93
[2017-06-19 15:48] LABS: ALT (GPT) 59 U/L (12-78); AST (GOT) 30 U/L (15-37); GLOMERULAR FILTRATION RATE 79 ML/MIN (>89)
[2017-06-19 15:49] LABS: TOTAL BILIRUBIN ADULT 0.3 MG/DL (0.2-1.0)
[2017-06-19 15:51] LABS: ALKALINE PHOSPHATASE 61 U/L (45-117)
--- NOTE | 2017-06-19 16:27 | RADRPT ---
EXAM DATE/TIME: 06/19/2017 15:54 [facility] COMPARISON: CT ABDOMEN & PELVIS W CONTRAST, February 23, 2017, 5:09. INDICATIONS : Right flank pain. Evaluate for renal stone. ORAL CONTRAST: No oral contrast ingested. RADIATION DOSE: 21.00 CTDIvol (mGy) MEDICAL HISTORY : Renal calculi. Hypertension. Hypothyroidism.Diabetes. SURGICAL HISTORY : Thyroidectomy. ENCOUNTER: Initial ACUITY: 1 day PAIN SCALE: 6/10 LOCATION: Right flank TECHNIQUE: Volumetric scanning of the abdomen and pelvis was performed. Using automated exposure control and ad justment of the mA and/or kV according to patient size, radiation dose was kept as low as reasonably achievable to obtain optimal diagnostic quality images. DICOM format image data is available electro nically for review and comparison. FINDINGS: There is a 3 x 5 x 5 mm stone of the distal right ureter causing mild to moderate hydronephrosis and hydroureter and mild perinephric edema.. The stone is approximately 1.5 cm above the ureterovesical j unction. It may be the same stone that was near the ureteropelvic junction previously. No stones or o bstruction on the left. Small right renal cysts are again noted. Noncontrast appearance of the visualized liver, spleen, pancreas and adrenal glands within normal hough its. Numerous small stones are again seen in the gallbladder. No duct stone or ductal dilatation. No obstruction or acute inflammatory changes are seen of the gastrointestinal tract. Diverticulosis agai n seen in the sigmoid colon. CONCLUSION: 3 x 5 x 5 mm stone of the distal right ureter causing mild to moderate obstructive uropathy. The ston e is not readily visible on the initial hide cleaner radiograph. Rene Steele MD on June 19, 2017 at 16:21 Board Certified Radiologist. This report was verified electronically.
[2017-06-19] MEDS ORDERED: ZOFR4TAB3 SL (16:37)
[2017-06-19] MEDS ORDERED: NORC5TAB PO (16:37)
[2017-06-19] MEDS ORDERED: IBUP-232 PO (16:37)
[2017-06-19] MEDS ORDERED: TAMS5CAP PO (16:37)
[2017-06-19 16:50] VITALS: BP 147/78; PULSE 80; RESP 18; O2SAT 93
[2017-06-19 16:59] LABS: GLUCOSE,URINE NEG (NEG); KETONE, URINE NEG (NEG); NITRITE,URINE NEG (NEG)
[2017-06-19 17:05] LABS: BLOOD, URINE TRACE (NEG); METHOD OF COLLECTION CLEAN CATCH; URINE COLOR YELLOW (YELLW/STRAW)
[2017-06-19 17:06] LABS: SQUAMOUS EPITHELIAL CELL URINE 0-5 /hpf (0-5)
[2017-06-19 17:07] LABS: COMMENT (UR) CULT NOT INDICATED; CULTURE IF INDICATED CULT NOT INDICATED; HYALINE CAST, URINE 0-2 /lpf (RARE)
--- NOTE | 2017-06-20 19:19 | EKG ---
Date Performed: 06/19/2017 Time Performed: 14:57:51 PTAGE: 57 years EKG: SINUS BRADYCARDIA BORDERLINE LEFT AXIS DEVIATION MODERATE INTRAVENTRICULAR CONDUCTION DELAY Since previous tracing, no significant change noted BORDERLINE ECG PREVIOUS TRACING : 02/23/2017 04.15 DOCTOR: Joan Reynaga Interpretating Date/Time 06/20/2017 19:17:33
== END 2017-06-19 16:57 | disposition home or self-care (01) ==
LOC: PHED 14:56
DX: N20.1 Calculus of ureter (principal); I10 Essential (primary) hypertension; E03.9 Hypothyroidism, unspecified; E11.9 Type 2 diabetes mellitus without complications; R94.31 Abnormal electrocardiogram [ECG] [EKG]; Z87.442 Personal history of urinary calculi; Z79.84 Long term (current) use of oral hypoglycemic drugs; Z79.899 Other long term (current) drug therapy
CPT/HCPCS: 74176; 80053; 81001; 83690; 85025; 93005; 96361; 96374; 99285; J2405; J7030

== ENCOUNTER 2017-08-01 05:10 | Emergency (ER) | payer OTHER ==
[~2017-08-01 05:10] MED LIST changes: +IBUP-232 PO; +NORC5TAB PO; +ZOFR4TAB3 SL
[2017-08-01 05:15] VITALS: BP 146/98; PULSE 154; RESP 18; O2SAT 94
[2017-08-01] MEDS ORDERED: ADENOSINE IV SOLN 3 MG/ML 2 ML VIAL IV PUSH ONE (05:30)
[2017-08-01 05:33] VITALS: BP 135/98; PULSE 146; RESP 18; O2SAT 98
[2017-08-01 05:36] VITALS: BP 146/106; PULSE 104; RESP 20; O2SAT 93
[2017-08-01 05:43] VITALS: BP 145/93; PULSE 77; RESP 18; O2SAT 94
[2017-08-01] MEDS ORDERED: BYST2.5T2 PO (05:45)
--- NOTE | 2017-08-01 05:51 | PD ---
HPI Chief Complaint: Cardiac Complaint Time Seen by Provider: 05:24 Travel History International Travel<30 days: No Contact w/Intl Traveler<30days: No Traveled to known affect area: No History of Present Illness HPI The patient is a 57-year-old male with a history of SVT who complains of palpitations of SVT since 4 AM this morning. He states he gets these episodes of SVT several times a month but usually he is able by his own vagal maneuvers at home to stop them. This episode persisted. He denies any chest discomfort, short of any kind or any shortness of breath. The patient is reliable and is compliant with these medications. PFSH Past Medical History Diabetes: Yes Hypertension: Yes Kidney Stones: Yes Pneumonia: Yes (CHILDHOOD) Thyroid Disease: Yes (THYROID NODULE/GOITER, HYPOTHYROIDISM) Past Surgical History Other Surgery: Yes (PARTIAL THYROIDECTOMY 2009) Social History Alcohol Use: No Tobacco Use: No Substance Use: No Allergies-Medications (Allergen,Severity, Reaction): Coded Allergies: No Known Allergies (Unverified Adverse Reaction, Unknown, 08/01/17) Reported Meds & Prescriptions Reported Meds & Active Scripts Active Reported Bystolic (Nebivolol) 2.5 Mg Tab 2.5 Mg PO Aspirin Low Dose (Aspirin) 81 Mg Chew 81 Mg CHEW DAILY Metformin (Metformin HCl) 500 Mg Tab 500 Mg PO BIDPC With meals Synthroid (Levothyroxine Sodium) 75 Mcg Tab 75 Mcg PO DAILY Valsartan 320 Mg Tab 320 Mg PO DAILY Review of Systems Except as stated in HPI: all other systems reviewed are Neg Physical Exam Narrative GENERAL: Well-nourished, well-developed patient in no apparent distress. The pulse rate is 150, the rest of his vital signs are normal. SKIN: Focused skin assessment warm/dry. HEAD: Normocephalic. EYES: No scleral icterus. No injection or drainage. NECK: Supple, trachea midline. No JVD or lymphadenopathy. CARDIOVASCULAR: SVT rhythm without murmurs, gallops, or rubs. RESPIRATORY: Breath sounds equal bilaterally. No accessory muscle use. Clear to auscultation bilaterally. GASTROINTESTINAL: Abdomen soft, non-tender, nondistended. MUSCULOSKELETAL: No cyanosis, or edema. BACK: Nontender without obvious deformity. No CVA tenderness. Data Data Last Documented VS Vital Signs Date Time Temp Pulse Resp B/P (MAP) Pulse Ox O2 Delivery O2 Flow Rate FiO2 08/01/17 05:15 Room Air Orders Orders Adenosine Inj (Adenocard Inj) (08/01/17 05:30) MDM Medical Decision Making Medical Screen Exam Complete: Yes Emergency Medical Condition: Yes Medical Record Reviewed: Yes Interpretation(s) The EKG shows SVT with some ST segment depression but no definite acute change. The EKG after conversion shows sinus rhythm with a rate of [address] elevation or depression. Differential Diagnosis SVT, acute coronary syndrome-highly unlikely, cardiac ischemia-unlikely, inadequate medication for SVT, noncompliance to medication Narrative Course We tried ice immersion but this did not work. The heart rate went to an the low 140 range but he did not convert. We tried this because this is something he could've done at home. Ultimately, we gave him 12 mg of adenosine and he rapidly converted to sinus rhythm. He never had any chest pain, shortness of breath, diaphoresis or nausea during this whole episode. Diagnosis Primary Impression: SVT (supraventricular tachycardia) Additional Instructions: As we discussed, call your sap fico architect and see if he wants to change her medications. Disposition: 01 DISCHARGE HOME Condition: Stable Singh Awad MD Aug 01, 2017 05:51
[2017-08-01 06:03] VITALS: BP 140/85; PULSE 68; RESP 16; O2SAT 93
--- NOTE | 2017-08-01 13:37 | EKG ---
Date Performed: 08/01/2017 Time Performed: 05:19:00 PTAGE: 57 years EKG: SUPRAVENTRICULAR TACHYCARDIA MARKED LEFT AXIS DEVIATION PATTERN CONSISTENT WITH PULMONARY D ISEASE ST DEPRESSION, CONSIDER SUBENDOCARDIAL INJURY ABNORMAL ECG Compared to PREVIOUS TRACING ST-T depression is now present, and nonspecific T wave changes are now noted PREVIOUS TRACIN06/19/2017 14.57 DOCTOR: Spencer Melendez Interpretating Date/Time 08/01/2017 13:36:47
--- NOTE | 2017-08-01 13:39 | EKG ---
Date Performed: 08/01/2017 Time Performed: 05:33:36 PTAGE: 57 years EKG: SINUS TACHYCARDIA PATTERN CONSISTENT WITH PULMONARY DISEASE LEFT ANTERIOR FASCICULAR BLOCK NONSPECIFIC ST & T-WAVE ABNORMALITY ABNORMAL ECG Compared to PREVIOUS TRACING sinus tachycardia is now present and there has been improvement in nons pecific T wave changes PREVIOUS TRACIN08/01/2017 05.19 DOCTOR: Spencer Melendez Interpretating Date/Time 08/01/2017 13:37:21
--- NOTE | 2017-08-01 15:17 | EKG ---
Date Performed: 08/01/2017 Time Performed: 05:46:49 PTAGE: 57 years EKG: Sinus rhythm MARKED LEFT AXIS DEVIATION PATTERN CONSISTENT WITH PULMONARY DISEASE MODERATE INTRAVENTRICULAR CONDU CTION DELAY Since previous tracing, no significant change noted ABNORMAL ECG PREVIOUS TRACING : 08/01/2017 05.33 DOCTOR: Spencer Melendez Interpretating Date/Time 08/01/2017 15:15:44
== END 2017-08-01 06:16 | disposition home or self-care (01) ==
LOC: PHED 05:10
DX: I47.1 Supraventricular tachycardia (principal); I10 Essential (primary) hypertension; E11.9 Type 2 diabetes mellitus without complications; E03.9 Hypothyroidism, unspecified; Z87.442 Personal history of urinary calculi; Z79.84 Long term (current) use of oral hypoglycemic drugs; Z79.899 Other long term (current) drug therapy
CPT/HCPCS: 93005; 96374; 99284; J0153

== ENCOUNTER 2017-10-14 05:49 | Emergency (ER) | payer OTHER ==
[~2017-10-14 05:49] MED LIST changes: +BYST2.5T2 PO; -IBUP-232 PO; -IBUP1TAB7 PO; -NORC5TAB PO; -PERC7.5T13 PO; -TAMS5CAP PO; -ZOFR4TAB PO; -ZOFR4TAB3 SL
[2017-10-14 06:05] VITALS: BP 106/82; PULSE 126; RESP 20; TEMP 98.1; O2SAT 95
[2017-10-14 06:15] VITALS: BP 103/75; PULSE 124; RESP 20; O2SAT 95
[2017-10-14 06:15] LABS: AUTOMATED NEUTROPHIL # 4.4 TH/MM3 (1.8-7.7); BASOPHIL # 0.1 TH/MM3 (0-0.2); BASOPHIL % 0.9 % (0.0-2.0); EOSINOPHIL # 0.1 TH/MM3 (0-0.4); EOSINOPHIL % 1.5 % (0.0-4.0); LYMPH % 33.9 % (9.0-44.0); LYMPHOCYTE # 2.7 TH/MM3 (1.0-4.8); MEAN CELL VOLUME 90.1 FL (80.0-100.0); MEAN CORPUSCULAR HEMOGLOBIN 29.9 PG (27.0-34.0); MEAN CORPUSCULAR HGB CONC 33.2 % (32.0-36.0); MEAN PLATELET VOLUME 7.9 FL (7.0-11.0); MONO % 8.2 % (0.0-8.0); MONOCYTE # 0.6 TH/MM3 (0-0.9); NEUT % 55.5 % (16.0-70.0); PLATELET COUNT 294 TH/MM3 (150-450); WHITE BLOOD COUNT 7.9 TH/MM3 (4.0-11.0)
[2017-10-14 06:23] LABS: CHLORIDE 106 MEQ/L (98-107); SODIUM (NA) 137 MEQ/L (136-145)
[2017-10-14 06:25] LABS: CALCIUM 8.5 MG/DL (8.5-10.1)
[2017-10-14 06:26] LABS: BICARBONATE 24.5 MEQ/L (21.0-32.0); BLOOD UREA NITROGEN 13 MG/DL (7-18); GLUCOSE,RANDOM 138 MG/DL (74-106)
[2017-10-14 06:29] LABS: CREATININE 0.88 MG/DL (0.60-1.30); GLOMERULAR FILTRATION RATE 89 ML/MIN (>89)
[2017-10-14 06:30] VITALS: BP 137/77; PULSE 74; RESP 18; O2SAT 95
[2017-10-14] MEDS ORDERED: ADENOSINE IV SOLN 3 MG/ML 2 ML VIAL IV PUSH ONE (06:30)
[2017-10-14] MEDS ORDERED: SODIUM CHLORID 0.9% 500 ML INJ 500 ML IV ONE (06:30)
[2017-10-14 06:34] LABS: TROPONIN I LESS THAN 0.02 NG/ML (0.02-0.05)
[2017-10-14] MEDS ORDERED: DILT120T PO (06:36)
[2017-10-14] MEDS ORDERED: TERA1CAP3 PO (06:37)
--- NOTE | 2017-10-14 06:49 | PD ---
HPI Chief Complaint: Cardiac Complaint Time Seen by Provider: 06:23 Travel History International Travel<30 days: No Contact w/Intl Traveler<30days: No Traveled to known affect area: No History of Present Illness HPI The patient is a 57-year-old male with a history of recurrent PAT. He is brought in by his who is an emergency room physician. He has been taking extra doses of diltiazem and by systolic before coming in. He denies any syncopal or near syncopal spells. He denies any chest pain. PFSH Past Medical History Heart Rhythm Problems: Yes (SVT ) Cardiovascular Problems: Yes Diabetes: Yes Diminished Hearing: No Hypertension: Yes Kidney Stones: Yes Pneumonia: Yes (CHILDHOOD) Thyroid Disease: Yes (THYROID NODULE/GOITER, HYPOTHYROIDISM) Tetanus Vaccination: < 5 Years Influenza Vaccination: Yes Past Surgical History Other Surgery: Yes (PARTIAL THYROIDECTOMY 2009) Social History Alcohol Use: No Tobacco Use: No Substance Use: No Allergies-Medications (Allergen,Severity, Reaction): Coded Allergies: No Known Allergies (Unverified Adverse Reaction, Unknown, 10/14/17) Reported Meds & Prescriptions Reported Meds & Active Scripts Active Reported Terazosin (Terazosin HCl) 1 Mg Cap 1 Mg PO DAILY Diltiazem (Diltiazem HCl) 120 Mg Tab 120 Mg PO DAILY Bystolic (Nebivolol) 2.5 Mg Tab 2.5 Mg PO Aspirin Low Dose (Aspirin) 81 Mg Chew 81 Mg CHEW DAILY Metformin (Metformin HCl) 500 Mg Tab 500 Mg PO BIDPC With meals Synthroid (Levothyroxine Sodium) 75 Mcg Tab 75 Mcg PO DAILY Valsartan 320 Mg Tab 320 Mg PO DAILY Review of Systems Except as stated in HPI: all other systems reviewed are Neg Physical Exam Narrative GENERAL: The patient is alert, oriented 3 in no apparent distress. His vital signs show pulse 126 but otherwise are normal. SKIN: Focused skin assessment warm/dry. HEAD: Atraumatic. Normocephalic. EYES: Pupils equal and round. No scleral icterus. No injection or drainage. ENT: No nasal bleeding or discharge. Mucous membranes pink and moist. NECK: Trachea midline. No JVD. CARDIOVASCULAR: Regular rate and rhythm. No murmur appreciated. RESPIRATORY: No accessory muscle use. Clear to auscultation. Breath sounds equal bilaterally. GASTROINTESTINAL: Abdomen soft, non-tender, nondistended. Hepatic and splenic margins not palpable. MUSCULOSKELETAL: No obvious deformities. No clubbing. No cyanosis. No edema. NEUROLOGICAL: Awake and alert. No obvious cranial nerve deficits. Motor grossly within normal limits. Normal speech. PSYCHIATRIC: Appropriate mood and affect; insight and judgment normal. Data Data Last Documented VS Vital Signs Date Time Temp Pulse Resp B/P (MAP) Pulse Ox O2 Delivery O2 Flow Rate FiO2 10/14/17 06:30 74 18 137/77 (97) 95 Room Air 10/14/17 06:05 98.1 Orders Orders Electrocardiogram (10/14/17 06:03) Complete Blood Count With Diff (10/14/17 06:03) Basic Metabolic Panel (Bmp) (10/14/17 06:03) Ckmb (Isoenzyme) Profile (10/14/17 06:03) Troponin I (10/14/17 06:03) Magnesium (Mg) (10/14/17 06:03) Adenosine Inj (Adenocard Inj) (10/14/17 06:30) Sodium Chlorid 0.9% 500 Ml Inj (Ns 500 M (10/14/17 06:30) Labs Laboratory Tests Test 10/14/17 06:05 White Blood Count 7.9 TH/MM3 Red Blood Count 5.00 MIL/MM3 Hemoglobin 15.0 GM/DL Hematocrit 45.0 % Mean Corpuscular Volume 90.1 FL Mean Corpuscular Hemoglobin 29.9 PG Mean Corpuscular Hemoglobin Concent 33.2 % Red Cell Distribution Width 13.0 % Platelet Count 294 TH/MM3 Mean Platelet Volume 7.9 FL Neutrophils (%) (Auto) 55.5 % Lymphocytes (%) (Auto) 33.9 % Monocytes (%) (Auto) 8.2 % Eosinophils (%) (Auto) 1.5 % Basophils (%) (Auto) 0.9 % Neutrophils # (Auto) 4.4 TH/MM3 Lymphocytes # (Auto) 2.7 TH/MM3 Monocytes # (Auto) 0.6 TH/MM3 Eosinophils # (Auto) 0.1 TH/MM3 Basophils # (Auto) 0.1 TH/MM3 CBC Comment DIFF FINAL Differential Comment Blood Urea Nitrogen 13 MG/DL Creatinine 0.88 MG/DL Random Glucose 138 MG/DL Calcium Level 8.5 MG/DL Magnesium Level 2.0 MG/DL Sodium Level 137 MEQ/L Potassium Level 3.9 MEQ/L Chloride Level 106 MEQ/L Carbon Dioxide Level 24.5 MEQ/L Anion Gap 7 MEQ/L Estimat Glomerular Filtration Rate 89 ML/MIN Total Creatine Kinase 98 U/L Troponin I LESS THAN 0.02 NG/ML MDM Medical Decision Making Medical Screen Exam Complete: Yes Emergency Medical Condition: Yes Medical Record Reviewed: Yes Interpretation(s) Initial EKG shows what likely is PAT at a very slow rate. He has no P-wave and the rate is 126. It is a regular rhythm. The CBC is normal. The troponin is less than 0.02. Differential Diagnosis PAT, atrial fib with regular rate, junctional tachycardia Narrative Course The patient has PAT with a slow ventricular response. He likely has a slow response because of by systolic and the diltiazem that he took. Diagnosis Primary Impression: Paroxysmal atrial tachycardia Additional Instructions: Follow-up with your primary care physician. Thanks for being patient, it was unusually busy tonight. Med/Other Pt SpecificInfo: No Change to Meds Disposition: 01 DISCHARGE HOME Condition: Stable Singh Awad MD Oct 14, 2017 06:49
--- NOTE | 2017-10-14 10:37 | EKG ---
Date Performed: 10/14/2017 Time Performed: 05:53:54 PTAGE: 57 years EKG: SINUS TACHYCARDIA PATTERN CONSISTENT WITH PULMONARY DISEASE LEFT ANTERIOR FASCICULAR BLOCK MODERATE ST DEPRESSION ABNORMAL ECG PREVIOUS TRACING 08/01/17 Compared to the prior study, the rate is faster. Nonspecific ST segme nt changes are now present. DOCTOR: Spencer Melendez Interpretating Date/Time 10/14/2017 10:35:35
== END 2017-10-14 07:09 | disposition home or self-care (01) ==
LOC: PHED 05:49
DX: I47.1 Supraventricular tachycardia (principal); I44.4 Left anterior fascicular block; R94.31 Abnormal electrocardiogram [ECG] [EKG]; E11.9 Type 2 diabetes mellitus without complications; I10 Essential (primary) hypertension; E04.9 Nontoxic goiter, unspecified; E03.9 Hypothyroidism, unspecified; Z87.442 Personal history of urinary calculi; Z79.82 Long term (current) use of aspirin
CPT/HCPCS: 80048; 82550; 83735; 84484; 85025; 93005; 96361; 96374; 99284; J0153; J7040

== ENCOUNTER 2017-10-27 07:11 | Emergency (ER) | payer OTHER ==
[~2017-10-27] VITALS: Ht 182.9 cm; Wt 117.0 kg
[~2017-10-27 07:11] MED LIST changes: +DILT120T PO; +TERA1CAP3 PO
[2017-10-27 07:15] VITALS: BP 131/99; PULSE 146; RESP 17; TEMP 97.6; O2SAT 96
[2017-10-27 07:30] VITALS: BP 138/78; PULSE 84; RESP 18; O2SAT 97
[2017-10-27] MEDS ORDERED: ADENOSINE IV SOLN 3 MG/ML 2 ML VIAL IV PUSH ONE (07:30)
[2017-10-27 07:32] LABS: AUTOMATED NEUTROPHIL # 4.1 TH/MM3 (1.8-7.7); BASOPHIL # 0.1 TH/MM3 (0-0.2); BASOPHIL % 0.9 % (0.0-2.0); EOSINOPHIL # 0.1 TH/MM3 (0-0.4); EOSINOPHIL % 1.5 % (0.0-4.0); HEMATOCRIT 48.2 % (39.0-51.0); HEMOGLOBIN 16.3 GM/DL (13.0-17.0); LYMPH % 41.3 % (9.0-44.0); LYMPHOCYTE # 3.5 TH/MM3 (1.0-4.8); MEAN CELL VOLUME 90.7 FL (80.0-100.0); MEAN CORPUSCULAR HEMOGLOBIN 30.7 PG (27.0-34.0); MEAN CORPUSCULAR HGB CONC 33.8 % (32.0-36.0); MEAN PLATELET VOLUME 7.8 FL (7.0-11.0); MONO % 9.3 % (0.0-8.0); MONOCYTE # 0.8 TH/MM3 (0-0.9); PLATELET COUNT 328 TH/MM3 (150-450); RED BLOOD COUNT 5.31 MIL/MM3 (4.50-5.90); WHITE BLOOD COUNT 8.6 TH/MM3 (4.0-11.0)
[2017-10-27 07:41] VITALS: BP 144/78; PULSE 82; RESP 18; O2SAT 97
[2017-10-27 07:43] LABS: CHLORIDE 104 MEQ/L (98-107); SODIUM (NA) 139 MEQ/L (136-145)
[2017-10-27 08:12] LABS: CALCIUM 9.5 MG/DL (8.5-10.1)
[2017-10-27 08:13] LABS: BICARBONATE 24.3 MEQ/L (21.0-32.0); GLUCOSE,RANDOM 118 MG/DL (74-106)
[2017-10-27 08:16] LABS: BLOOD UREA NITROGEN 14 MG/DL (7-18); GLOMERULAR FILTRATION RATE 69 ML/MIN (>89)
[2017-10-27 08:21] LABS: TROPONIN I LESS THAN 0.02 NG/ML (0.02-0.05)
--- NOTE | 2017-10-27 08:21 | PD ---
HPI Chief Complaint: Cardiac Complaint Time Seen by Provider: 07:18 Travel History International Travel<30 days: No Contact w/Intl Traveler<30days: No Traveled to known affect area: No History of Present Illness HPI This 57-year-old male is complaining of SVT. He has a history of this and has had several episodes in the last few months. He has seen Dr. levin and has had stress test and echocardiogram. He has been started on Cardizem 120 once a day which he was due for at about the time the tachycardia started. He had some palpitations last night and then the SVT this morning. He is not having chest pain or shortness of breath. PFSH Past Medical History Heart Rhythm Problems: Yes (SVT ) Cardiovascular Problems: Yes Diabetes: Yes Patient Takes Glucophage: Yes Diminished Hearing: No Hypertension: Yes Kidney Stones: Yes Pneumonia: Yes (CHILDHOOD) Thyroid Disease: Yes (THYROID NODULE/GOITER, HYPOTHYROIDISM) Tetanus Vaccination: < 5 Years Influenza Vaccination: Yes Past Surgical History Other Surgery: Yes (PARTIAL THYROIDECTOMY 2009) Social History Alcohol Use: No Tobacco Use: No Substance Use: No Allergies-Medications (Allergen,Severity, Reaction): Coded Allergies: No Known Allergies (Unverified Adverse Reaction, Unknown, 10/27/17) Reported Meds & Prescriptions Reported Meds & Active Scripts Active Reported Terazosin (Terazosin HCl) 1 Mg Cap 1 Mg PO DAILY Diltiazem (Diltiazem HCl) 120 Mg Tab 120 Mg PO DAILY Bystolic (Nebivolol) 2.5 Mg Tab 2.5 Mg PO Aspirin Low Dose (Aspirin) 81 Mg Chew 81 Mg CHEW DAILY Metformin (Metformin HCl) 500 Mg Tab 500 Mg PO BIDPC With meals Synthroid (Levothyroxine Sodium) 75 Mcg Tab 75 Mcg PO DAILY Valsartan 320 Mg Tab 320 Mg PO DAILY Review of Systems General / Constitutional: No: Fever, Chills HENT: No: Headaches Cardiovascular: Positive: Palpitations, Tachycardia, No: Chest Pain or Discomfort Respiratory: No: Cough, Shortness of Breath Gastrointestinal: No: Vomiting, Diarrhea Genitourinary: No: Urgency Skin: No Rash Neurologic: No: Syncope Endocrine: No: Heat Intolerance Hematologic/Lymphatic: No: Easy Bruising Physical Exam Narrative GENERAL: Well-developed male. Pulse rate is 140 SKIN: Focused skin assessment warm/dry. HEAD: Atraumatic. Normocephalic. EYES: Pupils equal and round. No scleral icterus. No injection or drainage. ENT: No nasal bleeding or discharge. Mucous membranes pink and moist. NECK: Trachea midline. No JVD. CARDIOVASCULAR: Rapid regular rate and rhythm. No murmur appreciated. RESPIRATORY: No accessory muscle use. Clear to auscultation. Breath sounds equal bilaterally. GASTROINTESTINAL: Abdomen soft, non-tender, nondistended. Hepatic and splenic margins not palpable. MUSCULOSKELETAL: No obvious deformities. No clubbing. No cyanosis. No edema. NEUROLOGICAL: Awake and alert. No obvious cranial nerve deficits. Motor grossly within normal limits. Normal speech. PSYCHIATRIC: Appropriate mood and affect; insight and judgment normal. Data Data Last Documented VS Vital Signs Date Time Temp Pulse Resp B/P (MAP) Pulse Ox O2 Delivery O2 Flow Rate FiO2 10/27/17 07:41 82 18 144/78 (100) 97 Room Air 10/27/17 07:15 97.6 Orders Orders Complete Blood Count With Diff (10/27/17 07:18) Basic Metabolic Panel (Bmp) (10/27/17 07:18) Troponin I (10/27/17 07:18) Adenosine Inj (Adenocard Inj) (10/27/17 07:30) Labs Laboratory Tests Test 10/27/17 07:22 White Blood Count 8.6 TH/MM3 Red Blood Count 5.31 MIL/MM3 Hemoglobin 16.3 GM/DL Hematocrit 48.2 % Mean Corpuscular Volume 90.7 FL Mean Corpuscular Hemoglobin 30.7 PG Mean Corpuscular Hemoglobin Concent 33.8 % Red Cell Distribution Width 14.0 % Platelet Count 328 TH/MM3 Mean Platelet Volume 7.8 FL Neutrophils (%) (Auto) 47.0 % Lymphocytes (%) (Auto) 41.3 % Monocytes (%) (Auto) 9.3 % Eosinophils (%) (Auto) 1.5 % Basophils (%) (Auto) 0.9 % Neutrophils # (Auto) 4.1 TH/MM3 Lymphocytes # (Auto) 3.5 TH/MM3 Monocytes # (Auto) 0.8 TH/MM3 Eosinophils # (Auto) 0.1 TH/MM3 Basophils # (Auto) 0.1 TH/MM3 CBC Comment DIFF FINAL Differential Comment Blood Urea Nitrogen 14 MG/DL Creatinine 1.10 MG/DL Random Glucose 118 MG/DL Calcium Level 9.5 MG/DL Sodium Level 139 MEQ/L Potassium Level 4.0 MEQ/L Chloride Level 104 MEQ/L Carbon Dioxide Level 24.3 MEQ/L Anion Gap 11 MEQ/L Estimat Glomerular Filtration Rate 69 ML/MIN MDM Medical Decision Making Medical Screen Exam Complete: Yes Emergency Medical Condition: Yes Medical Record Reviewed: Yes Differential Diagnosis Functional includes atrial flutter, SVT Narrative Course EKG shows a regular tachycardia at a rate of 150. The configuration of the QRS complexes identical to that of an episode that happened in October 14. He was given adenosine 6 mg IV and had prompt conversion to sinus rhythm. He is stable for discharge Diagnosis Primary Impression: SVT (supraventricular tachycardia) Disposition: 01 DISCHARGE HOME Condition: Stable Jay Byers MD Oct 27, 2017 08:21
[2017-10-27] MEDS ORDERED: CARD180C5 PO (08:24)
[2017-10-27 08:34] VITALS: BP 108/68
--- NOTE | 2017-10-27 21:23 | EKG ---
Date Performed: 10/27/2017 Time Performed: 07:16:19 PTAGE: 57 years EKG: LIKELY ATRIAL FLUTTER/TACHYCARDIA WITH RAPID VENTRICULAR RESPONSE MARKED LEFT AXIS DEVIATIO N MODERATE INTRAVENTRICULAR CONDUCTION DELAY NONSPECIFIC ST & T-WAVE ABNORMALITY Compared to previous tracing, HR is faster. The surpaventricular dysrhythmia, such that atrial flutter, appears likely bu t i cannot rule out sinus tachycardia. Recommend repeat EKG at a slower HR ABNORMAL ECG NO PREVIOUS TRACING DOCTOR: Minesh Amador Interpretating Date/Time 10/27/2017 21:22:16
== END 2017-10-27 08:35 | disposition home or self-care (01) ==
LOC: PHED 07:11
DX: I47.1 Supraventricular tachycardia (principal); R94.31 Abnormal electrocardiogram [ECG] [EKG]; E11.9 Type 2 diabetes mellitus without complications; I10 Essential (primary) hypertension; E03.9 Hypothyroidism, unspecified
CPT/HCPCS: 80048; 84484; 85025; 93005; 96374; 99284; J0153